=== PATIENT | female | born 1950 | race Caucasian/White ===

== ENCOUNTER 2017-01-11 14:37 | Outpatient (CLI) | payer OTHER ==
[~2017-01-11] VITALS: Ht 152.4 cm; Wt 92.7 kg
[~2017-01-11 14:37] MED LIST: AMLO2.5T78; BENA20TA65; DOCU-160 PO; INSU100I14; INSU100V19
[2017-01-11 14:49] VITALS: BP 151/67; PULSE 83; RESP 18; Ht 152.4 cm; Wt 92.7 kg
[2017-01-11] MEDS ORDERED: NOVMIX SC ×2 (15:02)
[2017-01-11] MEDS ORDERED: ATOR40TA68 PO (15:02)
[2017-01-11] MEDS ORDERED: AMLO-147 PO (15:02)
[2017-01-11] MEDS ORDERED: ASPI-664 PO (15:02)
[2017-01-11] MEDS ORDERED: CHOL100062 PO (15:02)
[2017-01-11] MEDS ORDERED: METO50TA16 PO (15:02)
[2017-01-11] MEDS ORDERED: FURO20TA3 PO (15:02)
--- NOTE | 2017-01-11 15:15 | PN ---
Date/Time of Note Date/Time of Note DATE: 01/11/17 TIME: 15:09 Outpatient Progress Note Chief Complaint Short of breath/diabetes/hypertension/depression/renal insufficiency/anemia/ HPI Shortness of breath/patient has slight shortness of breath, especially on exertion, patient also has a coughing, mild to moderate, no hemoptysis, no fever chill, no shortness of breath at rest, or at night, able to lie down flat, Diabetes/no polydipsia polyuria hypoglycemia, gastroparesis, no impaired vision , no rash, Hypertension/no headache or dizziness, no lightheadedness, blood pressure slightly elevated, on medication, Depression patient slightly depressed, no suicidal, Renal insufficiency/no nausea or vomiting, no pruritus, Anemia/no hematemesis or melena, no ecchymoses bruises or bleeding, Review of Systems Slight const: No Fever, no chills, no Wt. loss, slight fatigue, morbidly obese, normal appetite, no diaphoresis. Eyes: No pain, no discharge, no redness, no visual change, no foreign body. ENT: No pain, no bleeding, no congestion, no sore throat, no dysphagia, no discharge or rhinitis. Lymph: No adenopathy, no tender nodes, no lymphedema. Resp: Mild to moderate SOB especially on exertion,, and also has cough, no sputum, no wheezing, no chest pain. CV: No chest pain, no palpitaions, no PIZARRO, no PND, no edema. GI: Normal appetite, no pain, no nausea, no vomiting, no diarrhea, no blood, no constipation. : No frequency, no urgency, no dysuria, no hematuria, no flank pain, no discharge, no bleeding. Musc: No bone/joint pain, no back pain, no neck pain, no knee pain, no restricted ROM. Skin: No rash, no skin lesions, no erythema, no laceration, no bruising, no pruritus. Neuro: No LIU, no dizziness, no syncope, no seizure, no focal-weakness. Endo: No polyuria, no polydypsia, no dry-skin, no temp-intolerance. Psych: No hallucinations, no depression, no anxiety, no suicidal ideation. Ext: No edema, no pain, no ulcer, no weakness. Physical Exam Vital Signs Date Time Temp Pulse Resp B/P Pulse Ox O2 Delivery O2 Flow Rate FiO2 01/11/17 14:49 97.7 83 18 151/67 95 Room Air General Appearance: A 66 year-old female who appears well-developed, well- nourished, morbidly obese, in no acute distress. HEENT: Head normocephalic, atraumatic. Pupils equal, round, reactive to light and accommodate. Sclerae are no jaundice. Nasal turbinates pink without erythema or nasal discharge. Mucous membranes pink and moist without lesions. Oropharynx clear without any exudate or discharge. NECK: Supple. Trachea midline, No thyromegaly, No cervical lymphadenopathy, No mass, No carotid bruits, No JVD, Carotid pulses 2+ bilaterally. PULMONARY: Clear to auscultaion bilaterally, No retractions, Chest expansion symmetric bilaterally, no rales, no very few ronchi, no dulness on percussion. CARDIAC: Normal SI and S2, Regular rate and rythm, no murmur, gallop, or rub. GASTROINTESTINAL: Abdomen is soft, non-tender, Non Rigid, No distention, Positive bowel sounds x4 quadrants, Liver normal. SKIN: Warm, dry, no rash, no bruise, no echmosis. EXTREMITIES: Bilateral lower extremities normal, no edema, no phlabitus, pulse palpable, no contracture. MUSCULOSKELETAL: Spine Normal, Non-tender, Normal range of motion, No swelling, no deformity, no clubbing, or cyanosis, the patient has no edema to bilateral lower extremities, dorsalis pedis pulses palpable bilaterally. NEUROLOGIC: The patient is awake, alert, oriented, responding to yes/no questions appropriately, moving all extremities, cranial nerve intact, normal strenght, normal power, normal coordination, normal gait. Allergies Coded Allergies: No Known Allergy (Verified , 06/27/12) PMH Diabetes/hypertension/depression/cataract left side/hyperlipidemia/ovarian cancer/basal cell cancer Hysterectomy/cholecystectomy/ section/ventral hernia repair/breast biopsy/skin cancer excision Social Hx No smoking no drinking, Family Hx Cancer mother Diabetes father Assessment/Plan Impression Shortness of breath Diabetes Hypertension Depression Renal insufficiency Anemia Status post multiple surgery Plan Patient has multiple complex medical problem, patient has all the medication, patient was not prescribed inhaler, patient does not have any inhaler at present , Patient education done about diabetes and hypertension, Increase activity, lose weight, Albuterol 2 puffs p.o. 4 times daily, Phenergan with codeine 5 cc 4 times daily 200 cc, Patient encouraged to follow with the primary care physician, Medications Home Meds Reported Medications Insulin Aspart (Novolog Mix (70/30)) 100 Units/Ml Soln, 30 SC WITH DINNER, EA 01/11/17 Insulin Aspart (Novolog Mix (70/30)) 100 Units/Ml Soln, 45 SC WITH BREAKFAST, VIAL 01/11/17 Metoprolol Succinate* (Toprol XL*) 50 Mg Tab.er.24h, 50 MG PO DAILY, #30 TAB 01/11/17 Furosemide* (Furosemide*) 20 Mg Tablet, 20 MG PO BID, #30 TAB 01/11/17 Cholecalciferol* (Vitamin D3*) 1,000 Unit Tablet, 1000 UNIT PO DAILY, TAB 01/11/17 Atorvastatin* (Atorvastatin*) 40 Mg Tablet, 40 MG PO QHS, #30 TAB 01/11/17 Aspirin (Low Dose Aspirin) 81 Mg Tablet.dr, 81 MG PO DAILY, #30 TAB 01/11/17 Amlodipine Besylate* (Amlodipine Besylate*) 10 Mg Tablet, 10 MG PO DAILY, #30 TAB 01/11/17 Discontinued Reported Medications Docusate Sodium (Dulcolax Stool Softener) 100 Mg Capsule, 100 MG PO DAILY 06/27/12 Insulin Lispro (Humalog) 100 U/Ml Insuln.pen 10/29/10 Insulin Glargine,Hum.rec.anlog (Lantus) 100 U/Ml Vial 10/29/10 Benazepril Hcl* (Lotensin*) 20 Mg Tablet 10/29/10 Amlodipine Besylate* (Amlodipine Besylate*) 2.5 Mg Tablet 10/29/10 CORETTA RODRIGUEZ MD January 11, 2017 15:15
== END 2017-01-11 16:48 | disposition home or self-care (01) ==
LOC: DCC 14:37
PROVIDERS: ATTEND Internal Medicine
DX: E11.9 Type 2 diabetes mellitus without complications (principal); I10 Essential (primary) hypertension; R06.02 Shortness of breath; D64.9 Anemia, unspecified; F32.9 Major depressive disorder, single episode, unspecified; N28.9 Disorder of kidney and ureter, unspecified

== ENCOUNTER 2017-01-25 11:17 | Outpatient (CLI) | payer OTHER ==
[~2017-01-25] VITALS: Ht 152.4 cm; Wt 96.8 kg
[~2017-01-25 11:17] MED LIST changes: +AMLO-147 PO; -AMLO2.5T78; +ASPI-664 PO; +ATOR40TA68 PO; -BENA20TA65; +CHOL100062 PO; -DOCU-160 PO; +FURO20TA3 PO; -INSU100I14; -INSU100V19; +METO50TA16 PO; +NOVMIX SC
[2017-01-25 11:33] VITALS: BP 143/72; PULSE 81; RESP 18; Ht 152.4 cm; Wt 96.8 kg
--- NOTE | 2017-01-25 12:13 | PN ---
Date/Time of Note Date/Time of Note DATE: 01/25/17 TIME: 12:08 Outpatient Progress Note Chief Complaint Shortness of breath/diabetes/hypertension/anemia/renal insufficiency HPI Shortness of breath/patient shortness of breath improved significantly, patient does not have any coughing, no wheezing, no chest tightness, no fever chill, Diabetes/no polydipsia polyuria hypoglycemia, patient has gained few pounds recently, according to patient blood sugar has been stable, Hypertension/no headache or dizziness, no lightheadedness, Anemia/no hematemesis melena, ecchymoses bruises or bleeding, Renal insufficiency/no nausea or vomiting, no pruritus, no not on dialysis, Review of Systems Const: No Fever, no chills, no Wt. loss, no Fatigue, normal appetite, no diaphoresis. Slightly obese, Eyes: No pain, no discharge, no redness, no visual change, no foreign body. ENT: No pain, no bleeding, no congestion, no sore throat, no dysphagia, no discharge or rhinitis. Lymph: No adenopathy, no tender nodes, no lymphedema. Resp: No SOB, no cough, no sputum, no wheezing, no chest pain. No chest tightness, CV: No chest pain, no palpitaions, no PIZARRO, no PND, no edema. GI: Normal appetite, no pain, no nausea, no vomiting, no diarrhea, no blood, no constipation. : No frequency, no urgency, no dysuria, no hematuria, no flank pain, no discharge, no bleeding. Musc: No bone/joint pain, no back pain, no neck pain, no knee pain, no restricted ROM. Skin: No rash, no skin lesions, no erythema, no laceration, no bruising, no pruritus. Neuro: No LIU, no dizziness, no syncope, no seizure, no focal-weakness. Endo: No polyuria, no polydypsia, no dry-skin, no temp-intolerance. Psych: No hallucinations, no depression, no anxiety, no suicidal ideation. Ext: No edema, no pain, no ulcer, no weakness. Physical Exam Vital Signs Date Time Temp Pulse Resp B/P Pulse Ox O2 Delivery O2 Flow Rate FiO2 01/25/17 11:33 98.4 81 18 143/72 92 Room Air General Appearance: A 56 year-old female who appears well-developed, well- nourished, in no acute distress. Patient gained few pounds recently, slightly obese, HEENT: Head normocephalic, atraumatic. Pupils equal, round, reactive to light and accommodate. Sclerae are no jaundice. Nasal turbinates pink without erythema or nasal discharge. Mucous membranes pink and moist without lesions. Oropharynx clear without any exudate or discharge. NECK: Supple. Trachea midline, No thyromegaly, No cervical lymphadenopathy, No mass, No carotid bruits, No JVD, Carotid pulses 2+ bilaterally. PULMONARY: Clear to auscultaion bilaterally, No retractions, Chest expansion symmetric bilaterally, no rales, occasional ronchi, no dulness on percussion. CARDIAC: Normal SI and S2, Regular rate and rythm, no murmur, gallop, or rub no S3 no S4,. GASTROINTESTINAL: Abdomen is soft, non-tender, Non Rigid, No distention, Positive bowel sounds x4 quadrants, Liver normal. SKIN: Warm, dry, no rash, no bruise, no echmosis. EXTREMITIES: Bilateral lower extremities normal, no edema, no phlabitus, pulse palpable, no contracture. MUSCULOSKELETAL: Spine Normal, Non-tender, Normal range of motion, No swelling, no deformity, no clubbing, or cyanosis, the patient has no edema to bilateral lower extremities, dorsalis pedis pulses palpable bilaterally. NEUROLOGIC: The patient is awake, alert, oriented, responding to yes/no questions appropriately, moving all extremities, cranial nerve intact, normal strenght, normal power, normal coordination, normal gait. Allergies Coded Allergies: No Known Allergy (Verified , 06/27/12) PMH No change Social Hx No change Family Hx No change Assessment/Plan Impression Shortness of breath improved/diabetes/hypertension/anemia/renal insufficiency/ depression Plan Patient doing very well, patient has no longer any more coughing, patient able to walk more than before, without any coughing, no shortness of breath, patient blood pressure stable, Patient blood sugar has been stable, patient needs to lose weight, patient education done about blood pressure diabetes and related issues, explaining in Hungarian, Patient encouraged to follow with the primary care physician, Patient also encouraged to lose weight, Patient has all the medication, patient does not read refill, Medications Home Meds Reported Medications Insulin Aspart (Novolog Mix (70/30)) 100 Units/Ml Soln, 30 SC WITH DINNER, EA 01/11/17 Insulin Aspart (Novolog Mix (70/30)) 100 Units/Ml Soln, 45 SC WITH BREAKFAST, VIAL 01/11/17 Metoprolol Succinate* (Toprol XL*) 50 Mg Tab.er.24h, 50 MG PO DAILY, #30 TAB 01/11/17 Furosemide* (Furosemide*) 20 Mg Tablet, 20 MG PO BID, #30 TAB 01/11/17 Cholecalciferol* (Vitamin D3*) 1,000 Unit Tablet, 1000 UNIT PO DAILY, TAB 01/11/17 Atorvastatin* (Atorvastatin*) 40 Mg Tablet, 40 MG PO QHS, #30 TAB 01/11/17 Aspirin (Low Dose Aspirin) 81 Mg Tablet.dr, 81 MG PO DAILY, #30 TAB 01/11/17 Amlodipine Besylate* (Amlodipine Besylate*) 10 Mg Tablet, 10 MG PO DAILY, #30 TAB 01/11/17 CORETTA RODRIGUEZ MD Jan 25, 2017 12:13
== END 2017-01-25 17:00 | disposition home or self-care (01) ==
LOC: DCC 11:17
PROVIDERS: ATTEND Internal Medicine
DX: R06.02 Shortness of breath (principal); E11.9 Type 2 diabetes mellitus without complications; I10 Essential (primary) hypertension; D64.9 Anemia, unspecified; N28.9 Disorder of kidney and ureter, unspecified; Z79.4 Long term (current) use of insulin

== ENCOUNTER 2017-04-30 14:31 | Emergency (ER) | payer OTHER ==
[~2017-04-30] VITALS: Ht 152.4 cm; Wt 96.5 kg
[2017-04-30 14:33] VITALS: Ht 152.4 cm; Wt 96.5 kg
--- NOTE | 2017-04-30 15:28 | ERD ---
ER Documentation Chief Complaint Date/Time DATE: 04/30/17 TIME: 15:26 Chief Complaint RUQ AP RAD TO BACK WITH INDIGESTION, SOB, CONSTIPATION X 1 WK HPI 66-year-old woman complaining of mild right upper quadrant abdominal pain radiating to the back with belching, indigestion, burning. She has had similar symptoms in the past. She is status post cholecystectomy. She states she also feels constipated. She denies pain here in the ED. ROS All systems reviewed and are negative except as per history of present illness. Medications Home Meds Active Scripts Docusate Sodium* (Colace*) 100 Mg Capsule, 100 MG PO BID for CONSTIPATION, #30 CAP Prov:JENNIFER MAZA MD 04/30/17 Polyethylene Glycol* (Miralax*) 17 Gm Powd.pack, 17 GM PO DAILY for CONSTIPATION , #7 Prov:JENNIFER MAZA MD 04/30/17 Naproxen* (Naprosyn*) 500 Mg Tablet, 500 MG PO BID Y for PAIN AND/OR INFLAMMATION, #30 TAB Prov:JENNIFER MAZA MD 04/30/17 Reported Medications Insulin Aspart (Novolog Mix (70/30)) 100 Units/Ml Soln, 20 SC QPM, EA 04/30/17 Insulin Aspart (Novolog Mix (70/30)) 100 Units/Ml Soln, 30 SC QAM, VIAL 04/30/17 Lorazepam* (Lorazepam*) 0.5 Mg Tablet, 0.5 MG PO Q6 Y for ANXIETY, TAB 04/30/17 Paroxetine Hcl* (Paroxetine*) 10 Mg Tablet, 10 MG PO DAILY, TAB 04/30/17 Ranitidine Hcl* (Ranitidine Hcl*) 150 Mg Tablet, 150 MG PO HS, #30 TAB 04/30/17 Benazepril Hcl* (Benazepril Hcl*) 40 Mg Tablet, 40 MG PO DAILY, #30 TAB 04/30/17 Metoprolol Succinate* (Toprol XL*) 50 Mg Tab.er.24h, 50 MG PO DAILY, #30 TAB 01/11/17 Aspirin (Low Dose Aspirin) 81 Mg Tablet.dr, 81 MG PO DAILY, #30 TAB 01/11/17 Amlodipine Besylate* (Amlodipine Besylate*) 10 Mg Tablet, 10 MG PO DAILY, #30 TAB 01/11/17 Allergies Allergies: Coded Allergies: No Known Allergy (Verified , 04/30/17) PMhx/Soc Uterine CA, hypertension, diabetes mellitus History of Surgery: Yes (COLONOSCOPY TODAY. ) Anesthesia Reaction: No Hx Neurological Disorder: No Hx Respiratory Disorders: No Hx Cardiac Disorders: Yes (HTN) Hx Psychiatric Problems: No Hx Miscellaneous Medical Probl: Yes (UTERINE CA, DIABETIS) Hx Alcohol Use: No Hx Substance Use: No Hx Tobacco Use: No FmHx Family History: diabetes Physical Exam Vitals Per nurses notes Physical Exam GENERAL: Well-developed, well-nourished, well-hydrated, in no apparent distress , looks nontoxic in appearance HEENT: Moist mucous membranes, pink conjunctiva, no cervical spine tenderness or step-off deformities, no goiter, no jaundice or icterus, extraocular movements intact without pain. No submandibular induration, and no pharyngeal erythema NEURO: Alert and oriented 3, cranial nerves II through XII intact bilaterally, pupils equal round reactive to light, no focal deficits or facial asymmetry, sensation intact distally Strength 5/5 in upper and lower extremities bilaterally CARDIAC: Regular rate and rhythm, no murmurs rubs or gallops LUNGS: Clear bilaterally no wheezing crackles or stridor ABDOMEN: Soft nontender, no guarding, no rigidity, no rebound, no psoas sign no obturator sign. Normoactive bowel sounds SKIN: Warm and dry to touch, no abrasions, contusions, or hematomas, no lacerations, no ecchymosis, no target lesions, and without ulcers EXTREMITIES: No clubbing cyanosis or edema, calves are bilaterally symmetrical, no Homans sign, no popliteal cord sign. Distal pulses equal and bilateral PSYCH: Normal affect without agitation or irritability Results 24 hrs Laboratory Tests Test 04/30/17 15:25 04/30/17 15:31 White Blood Count 13.010^3/ul Red Blood Count 3.8910^6/ul Hemoglobin 9.4g/dl Hematocrit 30.7% Mean Corpuscular Volume 78.9fl Mean Corpuscular Hemoglobin 24.2pg Mean Corpuscular Hemoglobin Concent 30.6g/dl Red Cell Distribution Width 15.2% Platelet Count 63357^3/UL Mean Platelet Volume 12.2fl Neutrophils % 66.4% Lymphocytes % 25.7% Monocytes % 6.3% Eosinophils % 0.9% Basophils % 0.4% Nucleated Red Blood Cells % 0.0/100WBC Neutrophils # (Manual) 8.610^3/ul Lymphocytes # 3.310^3/ul Monocytes # 0.810^3/ul Eosinophils # 0.110^3/ul Basophils # 0.110^3/ul Nucleated Red Blood Cells # 0.010^3/ul Sodium Level 138mmol/L Potassium Level 4.5mmol/L Chloride Level 101mmol/L Carbon Dioxide Level 25mmol/L Anion Gap 17 Blood Urea Nitrogen 24mg/dl Creatinine 1.02mg/dl Glucose Level 150mg/dl Calcium Level 8.5mg/dl Total Bilirubin 0.2mg/dl Direct Bilirubin 0.00mg/dl Indirect Bilirubin 0.2mg/dl Aspartate Amino Transf (AST/SGOT) 25IU/L Alanine Aminotransferase (ALT/SGPT) 23IU/L Alkaline Phosphatase 115IU/L Troponin I < 0.012ng/ml Total Protein 8.5g/dl Albumin 4.0g/dl Globulin 4.50g/dl Albumin/Globulin Ratio 0.88 Lipase 206U/L Bedside Glucose 184mg/dL Current Medications Medications (Trade) Dose Ordered Sig/Stepan Route PRN Reason Start Time Stop Time Status Last Admin Dose Admin Sodium Chloride (NS) 500 ml @ 500 mls/hr Q1H STAT IV 04/30/17 15:41 04/30/17 16:40 DC 04/30/17 16:12 Ondansetron HCl (Zofran Inj) 4 mg ONCE STAT IV 04/30/17 15:41 04/30/17 15:43 DC 04/30/17 16:11 Procedures/[facility] IV line was established patient was placed on court recording monitor rhythm strip revealed a sinus rhythm at about 80 bpm with upright P and T waves. Patient was afebrile. I administered 1 L normal saline intravenously and Zofran 4 mg IV with improvement in symptoms. Right upper quadrant ultrasound was performed there was no hepatic biliary dilatation noted. Please refer to radiologist dictation for full report. CBC and electrolytes are normal, liver function tests normal, Troponin was negative Differential diagnoses considered, included but not limited to acute coronary syndrome, pulmonary embolism, aortic dissection, abdominal aortic aneurysm, sepsis, stroke, meningitis, encephalitis, pneumonia, appendicitis, cholecystitis , bowel obstruction, pyelonephritis, nephrolithiasis, cystitis, as well as metabolic, hematologic, and electrolyte abnormalities. As well as abscess, cellulitis, fractures, and dislocations. Patient feels much better at this time, and vital signs are normal, symptoms have improved. I did give strict instructions to return to the ED if symptoms continue or worsen, patient will otherwise follow-up with primary care physician. Patient understood instructions and agreed to plan. Disclaimer: Inadvertent spelling and grammatical errors are likely due to EHR/ dictation software use and do not reflect on the overall quality of patient care. Also, please note that the electronic time recorded on this note does not necessarily reflect the actual time of the patient encounter. Departure Diagnosis: Primary Impression: Abdominal pain Abdominal location: epigastric Qualified Code: R10.13 - Epigastric pain Additional Impressions: GERD (gastroesophageal reflux disease) Esophagitis presence: with esophagitis Qualified Code: K21.0 - Gastroesophageal reflux disease with esophagitis Constipation Constipation type: slow transit constipation Qualified Code: K59.01 - Slow transit constipation Condition: Good JENNIFER MAZA MD Apr 30, 2017 15:28
[2017-04-30] MEDS ORDERED: BENA40TA41 PO (15:33)
[2017-04-30] MEDS ORDERED: PARO10TA76 PO (15:33)
[2017-04-30] MEDS ORDERED: RANI150T5 PO (15:33)
[2017-04-30] MEDS ORDERED: LORA0.5T PO (15:34)
[2017-04-30] MEDS ORDERED: NOVMIX SC ×2 (15:36)
[2017-04-30] MEDS ORDERED: SOD CHLORIDE 0.9% 500 ML IV STA (15:41)
[2017-04-30] MEDS ORDERED: ONDANSETRON 4 MG INJ IV STA (15:41)
[2017-04-30 16:22] LABS: BASOPHIL # 0.1 10^3/ul (0.0-0.1); BASOPHILS % 0.4 % (0.0-2.0); EOSINOPHILS # 0.1 10^3/ul (0.0-0.5); EOSINOPHILS % 0.9 % (0.0-7.0); HEMATOCRIT 30.7 % (37.0-47.0); HEMOGLOBIN 9.4 g/dl (12.0-16.0); LYMPHOCYTES # 3.3 10^3/ul (0.8-2.9); LYMPHOCYTES % 25.7 % (15.0-51.0); MEAN CORPUSCULAR HEMOGLOBIN 24.2 pg (29.0-33.0); MEAN CORPUSCULAR HGB CONC 30.6 g/dl (32.0-37.0); MEAN CORPUSCULAR VOLUME 78.9 fl (82.0-101.0); MEAN PLATELET VOLUME 12.2 fl (7.4-10.4); MONOCYTE # 0.8 10^3/ul (0.3-0.9); MONOCYTES % 6.3 % (0.0-11.0); NEUTROPHILS % 66.4 % (39.0-77.0); PLATELET COUNT 373 10^3/UL (140-415); RED BLOOD COUNT 3.89 10^6/ul (4.20-5.40); RED CELL DISTRIBUTION WIDTH 15.2 % (11.5-14.5)
[2017-04-30 16:44] LABS: ALANINE AMINOTRANSFERASE 23 IU/L (13-69); ALBUMIN/GLOBULIN RATIO 0.88; ALKALINE PHOSPHATASE 115 IU/L (42-121); ANION GAP 17 (8-16); ASPARTATE AMINO TRANSFERASE 25 IU/L (15-46); BILIRUBIN,INDIRECT 0.2 mg/dl (0-1.1); BILIRUBIN,TOTAL 0.2 mg/dl (0.2-1.3); BLOOD UREA NITROGEN 24 mg/dl (7-20); CALCIUM 8.5 mg/dl (8.4-10.2); CARBON DIOXIDE 25 mmol/L (21-31); CHLORIDE 101 mmol/L (97-110); CREATININE 1.02 mg/dl (0.44-1.00); GLUCOSE 150 mg/dl (70-220); POTASSIUM 4.5 mmol/L (3.5-5.1); SODIUM 138 mmol/L (135-144); TOTAL PROTEIN 8.5 g/dl (6.1-8.1)
--- NOTE | 2017-04-30 16:52 | RADRPT ---
PROCEDURE: Right upper quadrant abdominal ultrasound. CLINICAL INDICATION: Abdominal pain TECHNIQUE: Ramos scale and color doppler ultrasound images of the right upper quadrant of the abdom en. COMPARISON: None FINDINGS: Pancreas: Visualized portions appear of normal echogenicity without focal lesions. Liver: Morphology: The right lobe of the liver is elongated measuring up to 18.0 cm which may reflect Riede l's lobe configuration. Contour:Normal, no evidence of nodularity. Echogenicity: Normal. Focal lesions:None. Main portal vein: Patent with hepatopetal flow. Biliary System: Gallbladder wall: Surgically absent Gallstones: None. Intrahepatic bile ducts: Normal caliber. Common bile duct diameter (mm): 4.9 Kidneys: Right length (cm) : 9.0 Right cortical thickness: Normal. Echogenicity: Increased Hydronephrosis: None. Renal calculi: None. Focal lesions: 1.4 cm echogenic nonshadowing cortical focus within the upper pole right kidney possi go representing a small fat containing lesion such as an angiomyolipoma. Free fluid/ascites: None. Abdominal aorta: Not visualized by the overhauler helper. Other findings: None. IMPRESSION: Status post cholecystectomy. Normal caliber intrahepatic and extrahepatic biliary system. Increased echogenicity of the right kidney suggestive of medical renal disease. 1.4 cm echogenic cortical focus within the superior pole right kidney possibly representing a small angiomyolipoma. RPTAT: AADD .Shivam Ha MD, Date Time Electronically viewed and signed by .Shivam Ha MD, on 04/30/2017 16:51 .B/
[2017-04-30 16:55] LABS: TROPONIN-I < 0.012 ng/ml (0.00-0.12)
[2017-04-30] MEDS ORDERED: NAPR-260 PO (17:04)
[2017-04-30] MEDS ORDERED: POLY17PO6 PO (17:05)
[2017-04-30] MEDS ORDERED: DOCU-144 PO (17:05)
[2017-04-30 17:17] VITALS: BP 162/70; PULSE 68; RESP 22; TEMP 98.4
== END 2017-04-30 17:29 | disposition home or self-care (01) ==
LOC: E/R 15:36
DX: K21.0 Gastro-esophageal reflux disease with esophagitis (principal); K59.01 Slow transit constipation; I10 Essential (primary) hypertension; E11.9 Type 2 diabetes mellitus without complications; Z79.4 Long term (current) use of insulin; Z79.82 Long term (current) use of aspirin; Z85.42 Personal history of malignant neoplasm of other parts of uterus
CPT/HCPCS: 36415; 76705; 80053; 82962; 83690; 84484; 85025; 96361; 96374; 99285; J2405; J7040

== ENCOUNTER 2017-10-04 15:03 | Day surgery (SDC) | END 2017-10-04 17:29 | disposition home or self-care (01) ==

== ENCOUNTER 2019-04-18 08:40 | Day surgery (SDC) | payer OTHER ==
[~2019-04-18] VITALS: Ht 154.9 cm; Wt 101.4 kg
[~2019-04-18 08:40] MED LIST changes: -ASPI-664 PO; +ASPI81TA52 PO; +BENA40TA56 PO; -CHOL100062 PO; +DOCU-144 PO; -FURO20TA3 PO; +FURO40SO PO; +LINA5TAB PO; +METO-319 PO; -METO50TA16 PO; +NAPR-985 PO; +PARO10TA76 PO; +POLY17PO6 PO; +RANI150T5 PO
[2019-04-18 09:41] VITALS: Ht 154.9 cm; Wt 101.4 kg
[2019-04-18] MEDS ORDERED: LABETALOL HCL 20MG INJ ONE (10:06)
[2019-04-18] MEDS ORDERED: PROPOFOL 40 ML ONE (10:06)
[2019-04-18] MEDS ORDERED: hydrALAzine 20 MG INJ ONE (10:07)
[2019-04-18 10:09] VITALS: BP 238/106; PULSE 89; RESP 20
[2019-04-18 10:50] VITALS: BP 141/63; PULSE 88; RESP 15
== END 2019-04-18 13:34 | disposition home or self-care (01) ==
LOC: GIL 08:40
PROVIDERS: ATTEND Internal Medicine Gastroenterology
DX: R19.4 Change in bowel habit (principal); K64.9 Unspecified hemorrhoids; I10 Essential (primary) hypertension; E11.9 Type 2 diabetes mellitus without complications; Z79.82 Long term (current) use of aspirin; Z79.4 Long term (current) use of insulin
CPT/HCPCS: 82962; J0360